=== PATIENT | female | born 1960 | race Caucasian/White ===

== ENCOUNTER 2017-06-12 03:05 | Emergency (ER) | payer OTHER ==
[2017-06-12] MEDS ORDERED: Morphine 4 mg/ml ISec IVP STA (03:19)
--- NOTE | 2017-06-12 03:30 | ED PDOC ---
Arrival/HPI - General Chief Complaint: Abdominal Pain Time Seen by Provider: 06/12/17 03:08 Historian: Patient - History of Present Illness Narrative History of Present Illness (Text): 06/12/17 03:22 A 56 year old female, whose past medical history includes polycystic kidney disease, hypertension, and no history of surgery, presents to the emergency department complaining of RUQ pain x 30 minutes. Patient describes pain as sharp, non-radiating. Patient denies of shortness of breath, cough, chest pain , fever, or any other complaints. Time/Duration: Prior to Arrival Symptom Onset: Sudden Symptom Course: Unchanged Quality: Other (sharp) Activities at Onset: Rest, Light Context: Home Past Medical History - Provider Review Nursing Documentation Reviewed: Yes - Infectious Disease Hx of Infectious Diseases: None - Cardiac Hx Cardiac Disorders: Yes Hx Hypertension: Yes - Pulmonary Hx Respiratory Disorders: No - Neurological Hx Neurological Disorder: No - HEENT Hx HEENT Disorder: No - Renal Hx Renal Disorder: Yes Other/Comment: Polycystic Kidney Disease - Endocrine/Metabolic Hx Endocrine Disorders: No - Hematological/Oncological Hx Blood Disorders: No - Integumentary Hx Dermatological Disorder: No Hx Basal Cell Carcinoma: No - Musculoskeletal/Rheumatological Hx Musculoskeletal Disorders: No - Gastrointestinal Hx Gastrointestinal Disorders: No - Genitourinary/Gynecological Hx Genitourinary Disorders: No - Psychiatric Hx Psychophysiologic Disorder: No Hx Substance Use: No - Anesthesia Hx Anesthesia: No Family/Social History - Physician Review Nursing Documentation Reviewed: Yes Family/Social History: No Known Family HX Smoking Status: Never Smoked Hx Alcohol Use: Yes Frequency of alcohol use: Socially Hx Substance Use: No Allergies/Home Meds Allergies/Adverse Reactions: Allergies No Known Allergies Allergy (Verified 06/12/17 03:18) None Home Medications: Home Meds Medication Instructions Recorded Confirmed Lisinopril [Zestril] 20 mg PO DAILY 06/12/17 06/12/17 Review of Systems - Physician Review All systems were reviewed & negative as marked: Yes - Review of Systems Constitutional: absent: Fevers, Night Sweats Respiratory: absent: SOB, Cough Cardiovascular: absent: Chest Pain Gastrointestinal: Abdominal Pain (RUQ) Physical Exam Vital Signs Reviewed: Yes Vital Signs Temp Pulse Resp BP Pulse Ox 06/12/17 06:31 98.2 F 62 16 148/91 H 97 06/12/17 04:22 73 16 159/117 H 93 L 06/12/17 03:05 98.1 F 74 22 187/119 H 96 Temperature: Afebrile Blood Pressure: Hypertensive Pulse: Regular Respiratory Rate: Normal Appearance: Positive for: Well-Appearing Pain Distress: None Mental Status: Positive for: Alert and Oriented X 3 - Systems Exam Head: Present: Atraumatic, Normocephalic Pupils: Present: PERRL Extroacular Muscles: Present: EOMI Conjunctiva: Present: Normal Mouth: Present: Moist Mucous Membranes Neck: Present: Normal Range of Motion Respiratory/Chest: Present: Clear to Auscultation, Good Air Exchange. No: Respiratory Distress, Accessory Muscle Use Cardiovascular: Present: Regular Rate and Rhythm, Normal S1, S2. No: Murmurs Abdomen: Present: Tenderness (RUQ tenderness) Back: Present: Normal Inspection Upper Extremity: Present: Normal Inspection. No: Cyanosis, Edema Lower Extremity: Present: Normal Inspection. No: Edema Neurological: Present: GCS=15, CN II-XII Intact, Speech Normal Skin: Present: Warm, Dry, Normal Color. No: Rashes Psychiatric: Present: Alert, Oriented x 3, Normal Insight, Normal Concentration Medical Decision Making ED Course and Treatment: 06/12/17 03:30 Impression: 56 year old female with RUQ sharp pain. Physical exam shows RUQ tenderness. Plan: -- EKG -- Chest X-ray -- Ultrasound Abdomen -- Abd/Pelvis CT -- Labs -- Morphine -- Zofran -- Reassess and disposition Progress Notes: 06/12/2017 03:35 EKG: Ordered, reviewed, and independently interpreted the EKG. Rate : 79 BPM Rhythm : NSR Interpretation : No ST-segment elevations or depressions, no T-wave inversions, normal intervals. Comparison : No previous EKG for comparison. 06/12/2017 04:00 Abd/Pelvis CT FINDINGS: LOWER THORAX: No infiltrate seen in the lung bases. ABDOMEN: LIVER: Multiple low density lesions in the liver, most likely representing cysts. The largest of these is a very large 22 x 20 x 16 cm cyst in the liver, which is mildly complex, demonstrating small peripheral calcifications. There is an indeterminate 4.3 cm low density lesion in the left lobe of the liver, image 33/series 2, which could represent a complex cyst. GALLBLADDER AND BILE DUCTS: Multiple tiny gallstones. No CT evidence of acute cholecystitis. PANCREAS: No CT evidence of acute pancreatitis. SPLEEN: No acute abnormality of the spleen identified. ADRENALS: No acute abnormality of the adrenal glands identified. KIDNEYS AND URETERS: Extensive low density lesions in the kidneys bilaterally, essentially replacing the renal parenchyma bilaterally, compatible with innumerable bilateral renal cysts. The kidneys are enlarged bilaterally. Findings are compatible with autosomal dominant polycystic kidney disease. There are small, indeterminate hyperdense lesions in the kidneys bilaterally, which could represent complex cysts. Bilateral nonobstructing renal stones. Surgical clip in the right kidney. No evidence of hydroureteronephrosis. STOMACH AND BOWEL: No acute abnormality of the stomach, small bowel or colon identified. No evidence of bowel obstruction. APPENDIX: Appendix is seen, and is within normal limits in appearance. PELVIS: BLADDER: No acute abnormality of the bladder identified. REPRODUCTIVE: No acute abnormality of the reproductive organs is seen. ABDOMEN and PELVIS: INTRAPERITONEAL SPACE: No evidence of free intraperitoneal air or fluid. BONES/JOINTS: No acute fractures or other acute bony abnormality noted. SOFT TISSUES: No acute abnormality of the visualized soft tissues is seen. VASCULATURE: No evidence of abdominal aortic aneurysm. No evidence of periaortic hemorrhage. LYMPH NODES: No evidence of diffuse lymphadenopathy. IMPRESSION: - No evidence of significant acute process on this unenhanced exam. - Renal findings compatible with autosomal dominant polycystic kidney disease. There are innumerable bilateral renal cysts. - Multiple hepatic cysts, including a very large 22 x 20 cm cyst, which is mildly complex. - Indeterminate lesions in the kidneys bilaterally and in the liver, which could represent complex cysts. Findings could be further evaluated with nonemergent abdominal MRI. - See above for remaining findings. 06/12/17 06:22 IMPRESSION: Mild dilatation of the common bile duct, cause not identified. Recommend correlation with LFTs for laboratory evidence of biliary obstruction. cbd mildly dilated- r/o choledolithiasis. ntoed cr. no previous. pt reports had "normal blood work" in [place] 2 months ago. pt unsure of pmd info from joc[facility]. states "it is in her email" which she cannot access. dr le requests medical service admission. dr serra accepts. med surg. 06/12/17 06:41 pt now states needs to go home to kids. dr serra updated. signs ama. advised of risks. pt understands. antibiotics given for urine. return precautions advised. - Lab Interpretations Lab Results: 06/12/17 03:19 06/12/17 03:19 Lab Results 06/12/17 03:45: Urine Color Yellow, Urine Appearance Slight-cloudy, Urine pH 6.0 , Ur Specific [place] 1.010, Urine Protein 100 H, Urine Glucose (UA) Negative, Urine Ketones Negative, Urine Blood Small H, Urine Nitrate Negative, Urine Bilirubin Negative, Urine Urobilinogen 0.2, Ur Leukocyte Esterase Moderate H, Urine RBC 1 - 3, Urine WBC 5 - 10, Ur Epithelial Cells 0 - 2, Urine Bacteria Few 06/12/17 03:19: Sodium 140, Potassium 4.5, Chloride 107, Carbon Dioxide 20 L, Anion Gap 18, BUN 46 H, Creatinine 2.8 H, Est GFR ( Amer) 21, Est GFR ( Non-Af Amer) 18, Random Glucose 93, Calcium 9.2, Total Bilirubin 0.6, AST 28, ALT 22, Alkaline Phosphatase 62, Lactate Dehydrogenase 711 H, Total Creatine Kinase 147, Troponin I 0.02, Total Protein 7.7, Albumin 4.2, Globulin 3.5, Albumin/Globulin Ratio 1.2, Amylase 101, Lipase 144 06/12/17 03:19: PT 10.9, INR 1.01, APTT 27.9 06/12/17 03:19: WBC 7.5, RBC 4.00, Hgb 11.2 L, Hct 34.5 L, MCV 86.3, MCH 28.0, MCHC 32.5, RDW 13.5, Plt Count 183, MPV 10.8, Gran % 62.6, Lymph % (Auto) 24.3, [place] % (Auto) 6.7 H, Eos % (Auto) 5.9 H, Baso % (Auto) 0.5, Gran # 4.69, Lymph # 1.8, [place] # 0.5, Eos # 0.4, Baso # 0.04 I have reviewed the lab results: Yes - RAD Interpretation Radiology Orders: 06/12/17 03:19 CHEST PORTABLE [RAD] Stat 06/12/17 03:20 ABDOMEN COMPLETE [US] Stat 06/12/17 04:00 ABD & PELVIS W/O PO OR IV CONT [CT] Stat - Medication Orders Current Medication Orders: Discontinued Medications Morphine Sulfate (Morphine) 4 mg IVP STAT STA Stop: 06/12/17 03:20 Last Admin: 06/12/17 03:51 Dose: 4 mg Ondansetron HCl (Zofran Inj) 4 mg IVP STAT STA Stop: 06/12/17 03:20 Last Admin: 06/12/17 03:51 Dose: 4 mg - Neishaibe Statement The provider has reviewed the documentation as recorded by the Lefty Bullard Provider Neishaibshona Attestation: All medical record entries made by the Lefty were at my direction and personally dictated by me. I have reviewed the chart and agree that the record accurately reflects my personal performance of the history, physical exam, medical decision making, and the department course for this patient. I have also personally directed, reviewed, and agree with the discharge instructions and disposition. Disposition/Present on Arrival - Present on Arrival Any Indicators Present on Arrival: No History of DVT/PE: No History of Uncontrolled Diabetes: No Urinary Catheter: No History of Decub. Ulcer: No History Surgical Site Infection Following: None - Disposition Have Diagnosis and Disposition been Completed?: Yes Diagnosis: Choledocholithiasis, Acute renal failure Disposition: AGAINST MEDICAL ADVICE Disposition Time: 06:24 Patient Problems: Current Active Problems Problem Status Onset Acute renal failure Acute Choledocholithiasis Acute Condition: UNKNOWN
[2017-06-12 03:50] LABS: BASO # 0.04 K/mm3 (0.0-2.0); BASO % 0.5 % (0.0-3.0); EOS # 0.4 (0.0-0.7); EOS % 5.9 % (1.5-5.0); GRAN # 4.69 (1.4-6.5); GRAN % 62.6 % (50.0-68.0); HEMOGLOBIN 11.2 g/dL (12.0-16.0); LYMPH # 1.8 (1.2-3.4); LYMPH % 24.3 % (22.0-35.0); MEAN CELL VOLUME 86.3 fl (80.0-105.0); MEAN CORPUSCULAR HGB CONC 32.5 g/dl (31.0-37.0); MEAN PLATELET VOLUME 10.8 fl (7.0-11.0); MONO # 0.5 (0.1-0.6); MONO % 6.7 % (1.0-6.0); PLATELET COUNT 183 10^3/uL (120.0-450.0); RED CELL DISTRIBUTION WIDTH 13.5 % (11.5-14.5); WHITE BLOOD COUNT 7.5 10^3/ul (4.5-11.0)
[2017-06-12 03:51] LABS: ALB/GLOB RATIO 1.2 (1.1-1.8); ALBUMIN 4.2 g/dL (3.0-4.8); CALCIUM 9.2 mg/dL (8.4-10.5)
[2017-06-12 03:53] LABS: INR 1.01 (0.93-1.08); PARTIAL THROMBOPLASTIN TIME 27.9 Seconds (23.7-30.8); PROTHROMBIN TIME 10.9 Seconds (9.9-11.8)
[2017-06-12 04:01] LABS: TROPONIN I 0.02 ng/mL
[2017-06-12 04:23] VITALS: RESP 16
[2017-06-12 04:26] LABS: URINE BILIRUBIN NEGATIVE (NEGATIVE); URINE BLOOD SMALL (NEGATIVE); URINE GLUCOSE (UA) NEGATIVE (NEGATIVE); URINE LEUKOCYTE ESTERASE MODERATE Leu/uL (NEGATIVE); URINE NITRATE NEGATIVE (NEGATIVE); URINE PROTEIN 100 mg/dL (<30 mg/dL); URINE UROBILINOGEN 0.2 E.U./dL (<1 E.U./dL)
[2017-06-12 04:28] LABS: URINE APPEARANCE SLIGHT-CLOUDY (CLEAR); URINE COLOR YELLOW (YELLOW)
[2017-06-12 04:32] LABS: URINE BACTERIA FEW (NEG); URINE EPITHELIAL CELLS 0 - 2 /hpf (0-5)
--- NOTE | 2017-06-12 05:50 | CT ---
EXAM: CT Abdomen and Pelvis Without Intravenous Contrast CLINICAL HISTORY: 56 years old, female; Pain; Abdominal pain; Additional info: Right sided abd pain TECHNIQUE: Axial computed tomography images of the abdomen and pelvis without intravenous contrast. All CT scans at this facility use one or more dose reduction techniques, viz.: automated exposure control; ma/kV adjustment per patient size (including targeted exams where dose is matched to indication; i.e. head); or iterative reconstruction technique. Coronal and sagittal reformatted images were created and reviewed. EXAM DATE/TIME: 06/12/2017 4:00 AM COMPARISON: No relevant prior studies available. FINDINGS: LOWER THORAX: No infiltrate seen in the lung bases. ABDOMEN: LIVER: Multiple low density lesions in the liver, most likely representing cysts. The largest of these is a very large 22 x 20 x 16 cm cyst in the liver, which is mildly complex, demonstrating small peripheral calcifications. There is an indeterminate 4.3 cm low density lesion in the left lobe of the liver, image 33/series 2, which could represent a complex cyst. GALLBLADDER AND BILE DUCTS: Multiple tiny gallstones. No CT evidence of acute cholecystitis. PANCREAS: No CT evidence of acute pancreatitis. SPLEEN: No acute abnormality of the spleen identified. ADRENALS: No acute abnormality of the adrenal glands identified. KIDNEYS AND URETERS: Extensive low density lesions in the kidneys bilaterally, essentially replacing the renal parenchyma bilaterally, compatible with innumerable bilateral renal cysts. The kidneys are enlarged bilaterally. Findings are compatible with autosomal dominant polycystic kidney disease. There are small, indeterminate hyperdense lesions in the kidneys bilaterally, which could represent complex cysts. Bilateral nonobstructing renal stones. Surgical clip in the right kidney. No evidence of hydroureteronephrosis. STOMACH AND BOWEL: No acute abnormality of the stomach, small bowel or colon identified. No evidence of bowel obstruction. APPENDIX: Appendix is seen, and is within normal limits in appearance. PELVIS: BLADDER: No acute abnormality of the bladder identified. REPRODUCTIVE: No acute abnormality of the reproductive organs is seen. ABDOMEN and PELVIS: INTRAPERITONEAL SPACE: No evidence of free intraperitoneal air or fluid. BONES/JOINTS: No acute fractures or other acute bony abnormality noted. SOFT TISSUES: No acute abnormality of the visualized soft tissues is seen. VASCULATURE: No evidence of abdominal aortic aneurysm. No evidence of periaortic hemorrhage. LYMPH NODES: No evidence of diffuse lymphadenopathy. IMPRESSION: - No evidence of significant acute process on this unenhanced exam. - Renal findings compatible with autosomal dominant polycystic kidney disease. There are innumerable bilateral renal cysts. - Multiple hepatic cysts, including a very large 22 x 20 cm cyst, which is mildly complex. - Indeterminate lesions in the kidneys bilaterally and in the liver, which could represent complex cysts. Findings could be further evaluated with nonemergent abdominal MRI. - See above for remaining findings.
--- NOTE | 2017-06-12 06:01 | US ---
EXAM: US Abdomen Complete CLINICAL HISTORY: 56 years old, female; Pain; Abdominal pain; Localized; Right upper quadrant (ruq); Additional info: Ruq pain TECHNIQUE: Real-time ultrasound of the abdomen (complete) with image documentation. EXAM DATE/TIME: 06/12/2017 3:20 AM COMPARISON: Recent abdominal CT. FINDINGS: Gallbladder: Within normal limits in appearance, without evidence of significant gallbladder wall thickening, or pericholecystic fluid. Reportedly negative sonographic Eden's sign. The gallstones seen on the recent abdominal CT are not visible sonographically. Common bile duct: Mildly dilated, measuring up to 8.8 mm in diameter (normal less than 6 mm).No common bile duct stones are visualized. Liver: Contains multiple cystic lesions, the largest of which is a 26 x 23 x 18 cm cystic lesion in the right lobe. Normal flow seen in the main portal vein on color and Doppler imaging. Pancreas: Imaged portions appear unremarkable. Right kidney: Enlarged, measuring 17.8 cm in length. Contains innumerable cystic lesions, compatible with autosomal dominant polycystic kidney disease. The largest of these is a 7 x 4.7 x 5.5 cm complex cystic lesion, which contains multiple thin internal septations. No definite hydronephrosis. Left kidney: Enlarged, measuring 18.6 cm in length. Contains innumerable cystic lesions, compatible with autosomal dominant polycystic kidney disease. The largest of these is a 5.6 x 5 x 4.2 cm mildly complex cystic lesion, which contains a few thin internal septations. No definite hydronephrosis. Spleen: Mildly enlarged, measuring 13 cm in length. Aorta: Imaged portions appear unremarkable. IVC: Not specifically imaged. IMPRESSION: Mild dilatation of the common bile duct, cause not identified. Recommend correlation with LFTs for laboratory evidence of biliary obstruction. Otherwise, no evidence of significant acute process. Multiple cystic lesions in the kidneys and liver, compatible with autosomal dominant polycystic kidney disease. Mildly complex cystic lesions in the kidneys bilaterally. Followup is recommended. Very large 26 cm hepatic cyst. See above for remaining findings.
[2017-06-12 06:32] VITALS: BP 148/91; PULSE 62; TEMP 98.2
[2017-06-12 06:50] VITALS: O2SAT 98
--- NOTE | 2017-06-12 10:26 | RAD ---
HISTORY: Abdominal pain COMPARISON: No prior. FINDINGS: LUNGS: No active pulmonary disease. PLEURA: No significant pleural effusion identified, no pneumothorax apparent. CARDIOVASCULAR: No radiographic findings to suggest acute or significant cardiovascular disease. OSSEOUS STRUCTURES: No significant abnormalities. VISUALIZED UPPER ABDOMEN: Normal. OTHER FINDINGS: None. IMPRESSION: No active disease. No preliminary report provided by emergency department personnel.
--- NOTE | 2017-06-12 18:52 | CARD ---
APPROVED REPORT EKG Measurement Heart [id number] PA 146P [id number] <Conclusion> Sinus rhythm with premature supraventricular complexes Left axis deviation Voltage criteria for left ventricular hypertrophy Abnormal ECG
== END 2017-06-12 06:50 | disposition left against medical advice (07) ==
LOC: ED 03:05 → UNDOADMIN 06:11 → ERH 06:11 → ED 06:50
DX: K80.50 Calculus of bile duct without cholangitis or cholecystitis without obstruction (principal); N17.9 Acute kidney failure, unspecified; Q61.3 Polycystic kidney, unspecified; I10 Essential (primary) hypertension
CPT/HCPCS: 71010; 74176; 76700; 80053; 81001; 82150; 82550; 83615; 83690; 84484; 85025; 85610; 85730; 87086; 93005; 96374; 96375; 99284; J2270; J2405

== ENCOUNTER 2017-06-16 19:05 | Inpatient (IN) | payer OTHER ==
[2017-06-16 19:09] VITALS: BMI 32.4
[2017-06-16] MEDS ORDERED: HYDROmorphone 2 mg/ml ISec IVP STA (19:33)
[2017-06-16] MEDS ORDERED: Sodium Chloride 0.9% 1,000 ML IV SCH (19:45)
--- NOTE | 2017-06-16 19:50 | ED PDOC ---
Arrival/HPI - General Chief Complaint: Abdominal Pain Time Seen by Provider: 06/16/17 19:15 Historian: Patient - History of Present Illness Narrative History of Present Illness (Text): 06/16/17 19:52 Haley Cornelius is a 56 year old female, with a history of polycystic kidney disease , and hypertension, presents to the emergency department complaining of 4 day duration of RUQ abdominal pain. Patient was evaluated at [facility] 4 days ago for these symptoms when she was offered admission to the hospital for further evaluation, but patient signed out against medical advice. Presents to emergency department today with similar unresolved symptoms. Denies any nausea, vomiting, or diarrhea. Denies fever, chills, headache, dizziness, chest pain, shortness of breath, urinary symptoms, or any other complaints at this time. Time/Duration: Other (4 days ) Symptom Onset: Gradual Symptom Course: Unchanged Severity Level: Mild Activities at Onset: Light Past Medical History - Provider Review Nursing Documentation Reviewed: Yes - Infectious Disease Hx of Infectious Diseases: None - Cardiac Hx Cardiac Disorders: Yes Hx Hypertension: Yes - Pulmonary Hx Respiratory Disorders: No - Neurological Hx Neurological Disorder: No - HEENT Hx HEENT Disorder: No - Renal Hx Renal Disorder: Yes Other/Comment: Polycystic Kidney Disease - Endocrine/Metabolic Hx Endocrine Disorders: No - Hematological/Oncological Hx Blood Disorders: No - Integumentary Hx Dermatological Disorder: No Hx Basal Cell Carcinoma: No - Musculoskeletal/Rheumatological Hx Musculoskeletal Disorders: No - Gastrointestinal Hx Gastrointestinal Disorders: No - Genitourinary/Gynecological Hx Genitourinary Disorders: No - Psychiatric Hx Psychophysiologic Disorder: No Hx Substance Use: No - Anesthesia Hx Anesthesia: No Family/Social History - Physician Review Nursing Documentation Reviewed: Yes Family/Social History: No Known Family HX Smoking Status: Never Smoked Hx Alcohol Use: Yes Hx Substance Use: No Allergies/Home Meds Allergies/Adverse Reactions: Allergies No Known Allergies Allergy (Verified 06/16/17 19:09) None Home Medications: Home Meds Medication Instructions Recorded Confirmed Lisinopril [Zestril] 20 mg PO DAILY 06/12/17 06/16/17 Review of Systems - Physician Review All systems were reviewed & negative as marked: Yes - Review of Systems Constitutional: Normal. absent: Fatigue, Fevers Respiratory: Normal. absent: SOB, Cough, Sputum Cardiovascular: Normal. absent: Chest Pain, Palpitations Gastrointestinal: Abdominal Pain (RUQ ). absent: Constipation, Diarrhea, Nausea , Vomiting Neurological: Normal. absent: Headache, Dizziness Psychiatric: Normal Physical Exam Vital Signs Reviewed: Yes Vital Signs Temp Pulse Resp BP Pulse Ox 06/17/17 00:19 98.2 F 76 16 154/98 H 99 06/16/17 21:03 82 18 134/97 H 95 06/16/17 19:11 97.8 F 83 18 177/129 H 96 Temperature: Afebrile Blood Pressure: Hypertensive Pulse: Regular Respiratory Rate: Normal Appearance: Positive for: Well-Appearing, Non-Toxic, Comfortable Pain Distress: None Mental Status: Positive for: Alert and Oriented X 3 - Systems Exam Head: Present: Atraumatic, Normocephalic Pupils: Present: PERRL Conjunctiva: Present: Normal Mouth: Present: Moist Mucous Membranes Respiratory/Chest: Present: Clear to Auscultation, Good Air Exchange. No: Respiratory Distress, Accessory Muscle Use Cardiovascular: Present: Regular Rate and Rhythm, Normal S1, S2. No: Murmurs Abdomen: Present: Tenderness (RUQ tenderness ), Normal Bowel Sounds. No: Distention, Peritoneal Signs Upper Extremity: Present: Normal Inspection. No: Cyanosis, Edema Lower Extremity: Present: Normal Inspection. No: Edema Neurological: Present: GCS=15, CN II-XII Intact, Speech Normal, Motor Func Grossly Intact, Normal Sensory Function Skin: Present: Warm, Dry, Normal Color. No: Rashes Psychiatric: Present: Alert, Oriented x 3, Normal Insight, Normal Concentration Medical Decision Making ED Course and Treatment: 06/16/17 20:03 Impression: A 56 year old female who presents to the emergency department complaining of RUQ abdominal pain Plan: -- EKG -- Labs, Cardiac enzymes -- Dilaudid -- IV Fluids -- Zofran -- Blood Culture -- Urinalysis -- US gall bladder -- Reassess and disposition Progress Notes: Reviewed EKG, NSR at [address] L[address]. Non-specific ST/T wave changes. 06/16/17 21:43 Reviewed sono, US Gallbladder shows: 1. Apparent gallbladder wall thickening, nonspecific. 2. Apparent biliary ductal dilatation. Consider MRCP. 3. Hepatic and renal cysts. Given size and number of cysts, suggest nonemergent MRI for complete evaluation. 4. Incidental/non-acute findings are described above. 06/16/17 22:[address] Galan, requests pt go to hospitalist service. 06/16/17 22:54 Case discussed with medical illustrator, who is aware and agrees with plan. 06/16/17 23:[address] Metzger, who is aware and agrees with plan. Accepts pt in to hospitalist service. Pt will be admitted to [facility] for abdominal pain. - Lab Interpretations Lab Results: 06/16/17 21:30 06/16/17 19:45 Lab Results 06/16/17 22:00: Urine Color Yellow, Urine Appearance Clear, Urine pH 6.0, Ur Specific [place] 1.015, Urine Protein 100 H, Urine Glucose (UA) Negative, Urine Ketones Negative, Urine Blood Trace-intact H, Urine Nitrate Negative, Urine Bilirubin Negative, Urine Urobilinogen 0.2, Ur Leukocyte Esterase Negative, Urine RBC Negative, Urine WBC 2 - 5, Ur Epithelial Cells 1 - 3, Urine Bacteria Few 06/16/17 21:30: WBC 9.1 D, RBC 3.94, Hgb 11.2 L, Hct 34.1 L, MCV 86.5, MCH 28.4 , MCHC 32.8, RDW 13.3, Plt Count 152, MPV 10.7, Gran % 81.0 H, Lymph % (Auto) 10.3 L, [place] % (Auto) 6.4 H, Eos % (Auto) 2.1, Baso % (Auto) 0.2, Gran # 7.39 H , Lymph # 0.9 L, [place] # 0.6, Eos # 0.2, Baso # 0.02 06/16/17 19:45: Sodium 139, Potassium 4.5, Chloride 104, Carbon Dioxide 22, Anion Gap 18, BUN 36 H, Creatinine 2.5 H, Est GFR ( Amer) 24, Est GFR ( Non-Af Amer) 20, Random Glucose 91, Calcium 9.7, Total Bilirubin 1.1, AST 31, ALT 22, Alkaline Phosphatase 76, Lactate Dehydrogenase 597, Total Creatine Kinase 98, Troponin I < 0.01 D, Total Protein 8.2, Albumin 4.4, Globulin 3.8, Albumin/Globulin Ratio 1.2, Amylase 92, Lipase 100 06/16/17 19:45: PT 11.1, INR 1.03, APTT 25.1 I have reviewed the lab results: Yes - RAD Interpretation Narrative RAD Interpretations (Text): US Gallbladder shows: Liver: Normal echogenicity. Few cysts, largest within RIGHT lobe measuring 14.1 x 13.1 x 12.5 cm. No intrahepatic bile duct dilatation. Gallbladder: No gallstones appreciated. Apparent 0.5 cm wall thickness. No pericholecystic fluid. No sonographic Eden's sign. Common bile duct: Up to 0.82 cm in diameter. No stones. Pancreas: Obscured by overlying bowel gas. Right kidney: Innumerable renal cysts, largest measuring up to 7.2 cm. No hydronephrosis. IMPRESSION: 1. Apparent gallbladder wall thickening, nonspecific. 2. Apparent biliary ductal dilatation. Consider MRCP. 3. Hepatic and renal cysts. Given size and number of cysts, suggest nonemergent MRI for complete evaluation. 4. Incidental/non-acute findings are described above. Radiology Orders: 06/16/17 19:33 GALL BLADDER [US] Stat Metrology Manager: Radiologist - EKG Interpretation Interpreted by ED Physician: Yes Type: 12 lead EKG - Medication Orders Current Medication Orders: Cefpodoxime Proxetil (Vantin) 100 mg PO BID [facility] PRN Reason: Protocol Sodium Chloride (Sodium Chloride 0.9%) 1,000 mls @ 100 mls/hr IV .Q10H [facility] Last Admin: 06/17/17 00:57 Dose: 100 mls/hr Lisinopril (Zestril) 20 mg PO DAILY [facility] Ondansetron HCl (Zofran Inj) 4 mg IVP Q6H PRN PRN Reason: Nausea/Vomiting Discontinued Medications Hydromorphone HCl (Dilaudid) 2 mg IVP STAT STA Stop: 06/16/17 19:34 Last Admin: 06/16/17 20:00 Dose: 2 mg Re-Assess: CARLOS Pain Assessment Document 06/16/17 21:00 SC (Rec: 06/17/17 00:22 SC [facility] [id number]) Pain Reassessment Is this a pain reassessment? Yes Sleep Is patient sleeping during reassessment? Yes Sodium Chloride (Sodium Chloride 0.9%) 1,000 mls @ 80 mls/hr IV .[id number] [facility] Last Admin: 06/16/17 20:00 Dose: 80 mls/hr Ondansetron HCl (Zofran Inj) 4 mg IVP STAT STA Stop: 06/16/17 19:34 Last Admin: 06/16/17 20:00 Dose: 4 mg Ondansetron HCl (Zofran Inj) 4 mg IVP STAT STA Stop: 06/17/17 00:05 Last Admin: 06/17/17 00:22 Dose: 4 mg - Neishaibe Statement The provider has reviewed the documentation as recorded by the Lefty Honeycutt Provider Attestation: All medical record entries made by the Lefty were at my direction and personally dictated by me. I have reviewed the chart and agree that the record accurately reflects my personal performance of the history, physical exam, medical decision making, and the department course for this patient. I have also personally directed, reviewed, and agree with the discharge instructions and disposition. Disposition/Present on Arrival - Present on Arrival Any Indicators Present on Arrival: No History of DVT/PE: No History of Uncontrolled Diabetes: No Urinary Catheter: No History of Decub. Ulcer: No History Surgical Site Infection Following: None - Disposition Have Diagnosis and Disposition been Completed?: Yes Diagnosis: Abdominal pain Disposition: HOSPITALIZED Disposition Time: 23:30 Condition: FAIR
[2017-06-16 20:42] LABS: ALB/GLOB RATIO 1.2 (1.1-1.8); ALBUMIN 4.4 g/dL (3.0-4.8); ALT/SGPT 22 U/L (7-56); AMYLASE 92 U/L (35-125); AST/SGOT 31 U/L (15-39); BLOOD UREA NITROGEN 36 mg/dL (7-21); CALCIUM 9.7 mg/dL (8.4-10.5); GFR AFRICAN-AMERICAN 24; GFR NON-AFRICAN AMERICAN 20; LIPASE 100 U/L (23-300)
[2017-06-16 20:44] LABS: INR 1.03 (0.93-1.08); PARTIAL THROMBOPLASTIN TIME 25.1 Seconds (23.7-30.8); PROTHROMBIN TIME 11.1 Seconds (9.9-11.8)
[2017-06-16 20:59] LABS: TROPONIN I < 0.01 ng/mL
--- NOTE | 2017-06-16 21:33 | US ---
EXAM: US Abdomen Limited, Right Upper Quadrant CLINICAL HISTORY: 56 years old, female; Pain; Abdominal pain; Flank; Right upper quadrant (ruq); Additional info: Ruq pain TECHNIQUE: Real-time ultrasound of the right upper quadrant with image documentation. COMPARISON: CT - ABD PELVIS W/O PO OR IV CONT 06/12/2017 4:06:39 AM FINDINGS: Liver: Normal echogenicity. Few cysts, largest within RIGHT lobe measuring 14.1 x 13.1 x 12.5 cm. No intrahepatic bile duct dilatation. Gallbladder: No gallstones appreciated. Apparent 0.5 cm wall thickness. No pericholecystic fluid. No sonographic Eden's sign. Common bile duct: Up to 0.82 cm in diameter. No stones. Pancreas: Obscured by overlying bowel gas. Right kidney: Innumerable renal cysts, largest measuring up to 7.2 cm. No hydronephrosis. IMPRESSION: 1. Apparent gallbladder wall thickening, nonspecific. 2. Apparent biliary ductal dilatation. Consider MRCP. 3. Hepatic and renal cysts. Given size and number of cysts, suggest nonemergent MRI for complete evaluation. 4. Incidental/non-acute findings are described above.
[2017-06-16 21:44] LABS: BASO # 0.02 K/mm3 (0.0-2.0); BASO % 0.2 % (0.0-3.0); EOS # 0.2 (0.0-0.7); EOS % 2.1 % (1.5-5.0); GRAN # 7.39 (1.4-6.5); HEMOGLOBIN 11.2 g/dL (12.0-16.0); LYMPH # 0.9 (1.2-3.4); LYMPH % 10.3 % (22.0-35.0); MEAN CELL VOLUME 86.5 fl (80.0-105.0); MEAN CORPUSCULAR HEMOGLOBIN 28.4 pg (25.0-35.0); MEAN CORPUSCULAR HGB CONC 32.8 g/dl (31.0-37.0); MEAN PLATELET VOLUME 10.7 fl (7.0-11.0); MONO # 0.6 (0.1-0.6); MONO % 6.4 % (1.0-6.0); PLATELET COUNT 152 10^3/uL (120.0-450.0); RBC 3.94 10^6/uL (3.5-6.1); RED CELL DISTRIBUTION WIDTH 13.3 % (11.5-14.5); WHITE BLOOD COUNT 9.1 10^3/ul (4.5-11.0)
[2017-06-16 22:32] LABS: URINE BILIRUBIN NEGATIVE (NEGATIVE); URINE BLOOD TRACE-INTACT (NEGATIVE); URINE GLUCOSE (UA) NEGATIVE (NEGATIVE); URINE LEUKOCYTE ESTERASE NEGATIVE Leu/uL (NEGATIVE); URINE NITRATE NEGATIVE (NEGATIVE); URINE PROTEIN 100 mg/dL (<30 mg/dL); URINE UROBILINOGEN 0.2 E.U./dL (<1 E.U./dL)
[2017-06-16 22:36] LABS: URINE APPEARANCE CLEAR (CLEAR); URINE COLOR YELLOW (YELLOW)
[2017-06-16 22:53] LABS: URINE BACTERIA FEW (NEG); URINE RBC NEGATIVE /hpf (0-2)
--- NOTE | 2017-06-17 00:04 | CP.PCM.HP ---
Addendum entered and electronically signed by Sanya Krishna DO 06/17/17 06:39 : Hepatic cyst may not be the etiology to the patient's RUQ pain. More commonly, patients with ADPKD develop recurrent flank or back pain due to kidney stones, cyst rupture or hemorrhage, or infection. Furthermore, after further questioning , the patient was unsure if in fact it was a renal cyst or liver cyst. Original Note: <Sanya Krishna - Last Filed: 06/17/17 02:37> History of Present Illness - History of Present Illness History of Present Illness: 56 year old female with a past medical history significant for polycystic kidney disease diagnosed at age 29 and hypertension who presents with RUQ pain of 4 days duration and 1 day of diarrhea and some nausea. The pain, she states, is what brings her in to the ED. It is located in the RUQ, constant, encompasses the area of the liver, worsened with deep inspiration, positional changes, and is unrelieved by Tylenol. She states she was in the ED four days ago for RUQ pain and was sent home with an antiemetic and Vantin for a UTI. The diarrhea she states, is unrelated to the RUQ pain, and is most likely because of the antibiotics she is taking. She also mentions that she had a physician in [place] that once scanned her abdomen and pelvis and drained a cyst because it was getting to large, not because it was causing pain. She denies worsening of the abdominal pain with meals or fasting. She further denies any fever, chills, night sweats, jaundiced, chest pain, change in urinary color. The diarrhea she states happened twice today, and has resolved since she stopped eating today. Primary Medical Doctor: Dr. Ifeanyi Shah [phone] PMH: Hypertension, PKD Family History: Mother had PKD, sister has PKD, father of lung cancer (he was a smoker) Past Surgical History: None Social: admits to occasional alcohol consumption, denies drinking more than 4 alcoholic beverages in one day, denies any tobacco use, denies any illicit drug use. Medications: Vantin 100 mg BID, Lisinopril 20 mg daily NKDA Present on Admission - Present on Admission Any Indicators Present on Admission: No Review of Systems - Constitutional Constitutional: absent: Anorexia, Chills, Headache, Night Sweats - EENT Eyes: absent: Change in Vision, Discharge, Itchy Eyes Ears: absent: Decreased Hearing, Ear Discharge, Disequilibrium - Respiratory Respiratory: Pain on Inspiration. absent: Dyspnea on Exertion, Chest Congestion - Gastrointestinal Gastrointestinal: Diarrhea, Vomiting. absent: Constipation - Genitourinary Genitourinary: Flank Pain (right). absent: Change in Urinary Stream - Musculoskeletal Musculoskeletal: absent: Muscle Weakness, Myalgias, Radiating Pain into Limb - Integumentary Integumentary: absent: Bleeding Lesions, Change in Nails, Erythema - Neurological Neurological: absent: Abnormal Hearing, Burning Sensations, Loss of Vision, Weakness - Psychiatric Psychiatric: absent: Change in Appetite, Depression, Mood Swings - Endocrine Endocrine: absent: Deepening of Voice, Excessive Sweating, Heat Intolorance - Hematologic/Lymphatic Hematologic: absent: Easy Bleeding, Easy Bruising, Lymphadenopathy Past Patient History - Infectious Disease Hx of Infectious Diseases: None - Past Social History Smoking Status: Never Smoked - CARDIAC Hx Cardiac Disorders: Yes Hx Hypertension: Yes - PULMONARY Hx Respiratory Disorders: No - NEUROLOGICAL Hx Neurological Disorder: No - HEENT Hx HEENT Problems: No - RENAL Hx Chronic Kidney Disease: Yes Other/Comment: Polycystic Kidney Disease - ENDOCRINE/METABOLIC Hx Endocrine Disorders: No - HEMATOLOGICAL/ONCOLOGICAL Hx Blood Disorders: No - INTEGUMENTARY Hx Dermatological Problems: No Hx Basil Cell: No - MUSCULOSKELETAL/RHEUMATOLOGICAL Hx Musculoskeletal Disorders: No - GASTROINTESTINAL Hx Gastrointestinal Disorders: No - GENITOURINARY/GYNECOLOGICAL Hx Genitourinary Disorders: No - PSYCHIATRIC Hx Psychophysiologic Disorder: No Hx Substance Use: No - SURGICAL HISTORY Hx Surgeries: No - ANESTHESIA Hx Anesthesia: No Meds Allergies/Adverse Reactions: Allergies Allergy/AdvReac Type Severity Reaction Status Date / Time No Known Allergies Allergy None Verified 06/16/17 19:09 Physical Exam - Constitutional Appears: Non-toxic, No Acute Distress - Head Exam Head Exam: ATRAUMATIC, NORMOCEPHALIC - Eye Exam Eye Exam: EOMI, Normal appearance, PERRL - ENT Exam ENT Exam: Mucous Membranes Moist, Normal Oropharynx - Neck Exam Neck exam: Positive for: Normal Inspection. Negative for: Lymphadenopathy, Thyromegaly - Respiratory Exam Respiratory Exam: Clear to Auscultation Bilateral, NORMAL BREATHING PATTERN. absent: Wheezes - Cardiovascular Exam Cardiovascular Exam: RRR, +S1, +S2 - GI/Abdominal Exam GI & Abdominal Exam: Organomegaly (hepatosplenomegaly, negative roland's, tenderness to deep palpation of liver.) - Rectal Exam Rectal Exam: absent: Deferred - Back Exam Back exam: NORMAL INSPECTION. absent: CVA tenderness (L), CVA tenderness (R) - Neurological Exam Neurological exam: Alert, CN II-XII Intact, Normal Gait, Oriented x3 - Psychiatric Exam Psychiatric exam: Normal Affect, Normal Mood - Skin Skin Exam: Dry, Intact, Normal Color, Warm Results - Vital Signs Recent Vital Signs: Last Vital Signs Temp 97.8 F 06/16/17 19:11 Pulse 82 06/16/17 21:03 Resp 18 06/16/17 21:03 BP 134/97 H 06/16/17 21:03 Pulse Ox 95 06/16/17 21:03 - Labs Result Diagrams: 06/16/17 21:30 06/16/17 19:45 Assessment & Plan - Assessment and Plan (Free Text) Assessment: 56 yo female with polycystic kidney disease (with cyst in the liver, kidneys, and spleen) presenting with RUQ pain with a large cyst in the right hepatic lobe without signs of gallbladder disease or shock, with a history of hepatic cyst drainage 2.5 years ago in the past. Plan: 1)RUQ pain likely secondary to large hepatic cyst in a patient with ADPKD who has had drainage of a hepatic cyst 2.5 years ago. Patient was informed by her doctor at the time that it would likely recur. She reports no monitoring for the past 2.5 years for her cyst/ADPKD - RUQ US shows that the liver has normal echogenicity, with a few cysts therein, with the largest within RIGHT lobe measuring 14.1 x 13.1 x 12.5 cm no intrahepatic bile duct dilatation. - IR radiologist Dr. Cory Marinelli consulted - Keep patient NPO - 100 cc/hr NS - Zofran for nausea 4 mg q6h PRN - Re-assess patient if and when pain recurs, start analgesia if needed 2) Unlikely gallstone/gall bladder disease given patient's labs or clinical presentation do not point to this. - RUQ US showed no evidence of gallstone, gall bladder wall thickening, or pericholecystic fluid, or CBD abnormalities. - No need for MRCP 3) Hypertension - C/W 20 mg Lisinopril in morning 4) Renal insufficiency secondary to PKD - Patient's Cr was 2.5 on current admission, last admission was 2.8. Patient is making urine, has no urinary complaints, was treated for a UTI. - Will continue to monitor and avoid nephrotoxins - Date & Time Date: 06/17/17 Time: 00:50 Decision To Admit - Pt Status Changed To: Hospital Disposition Of: Inpatient Admission - Admit Certification Admit to Inpatient:: After my assessment, the patient will require hospitalization for at least two midnights. This is because of the severity of symptoms shown, intensity of services needed, and/or the medical risk in this patient being treated as an outpatient. - . Bed Request Type: Med/Surg Admitting Physician: Marcel Metzger <Marcel Metzger - Last Filed: 06/17/17 07:04> Results - Vital Signs Recent Vital Signs: Last Vital Signs Temp 97.9 F 06/17/17 00:49 Pulse 64 06/17/17 00:49 Resp 20 06/17/17 00:49 BP 141/101 H 06/17/17 00:49 Pulse Ox 99 06/17/17 00:19 - Labs Result Diagrams: 06/16/17 21:30 06/16/17 19:45 Attending/Attestation - Attestation I have personally seen and examined this patient.: Yes I have fully participated in the care of the patient.: Yes I have reviewed all pertinent clinical information: Yes Notes (Text): 06/17/17 07:04 Agreed with assessment and plan.
[2017-06-17] MEDS: Sodium Chloride 0.9% 1,000 ML IV SCH ×2 (00:57→10:03)
--- NOTE | 2017-06-17 02:35 | ED PDOC ---
Arrival/HPI - General Chief Complaint: Abdominal Pain Time Seen by Provider: 06/16/17 19:15 Past Medical History - Infectious Disease Hx of Infectious Diseases: None - Cardiac Hx Cardiac Disorders: Yes Hx Hypertension: Yes - Pulmonary Hx Respiratory Disorders: No - Neurological Hx Neurological Disorder: No - HEENT Hx HEENT Disorder: No - Renal Hx Renal Disorder: Yes Other/Comment: Polycystic Kidney Disease - Endocrine/Metabolic Hx Endocrine Disorders: No - Hematological/Oncological Hx Blood Disorders: No - Integumentary Hx Dermatological Disorder: No Hx Basal Cell Carcinoma: No - Musculoskeletal/Rheumatological Hx Musculoskeletal Disorders: No - Gastrointestinal Hx Gastrointestinal Disorders: No - Genitourinary/Gynecological Hx Genitourinary Disorders: No - Psychiatric Hx Psychophysiologic Disorder: No Hx Substance Use: No - Anesthesia Hx Anesthesia: No Family/Social History Family/Social History: No Known Family HX Smoking Status: Never Smoked Hx Alcohol Use: No Hx Substance Use: No Allergies/Home Meds Allergies/Adverse Reactions: Allergies No Known Allergies Allergy (Verified 06/16/17 19:09) None Home Medications: Home Meds Medication Instructions Recorded Confirmed Lisinopril [Zestril] 20 mg PO DAILY 06/12/17 06/16/17 Physical Exam Vital Signs Temp Pulse Resp BP Pulse Ox 06/17/17 00:49 97.9 F 64 20 141/101 H 06/17/17 00:19 98.2 F 76 16 154/98 H 99 06/16/17 21:03 82 18 134/97 H 95 06/16/17 19:11 97.8 F 83 18 177/129 H 96 Medical Decision Making - Lab Interpretations Lab Results: 06/16/17 21:30 06/16/17 19:45 Lab Results 06/16/17 22:00: Urine Color Yellow, Urine Appearance Clear, Urine pH 6.0, Ur Specific [place] 1.015, Urine Protein 100 H, Urine Glucose (UA) Negative, Urine Ketones Negative, Urine Blood Trace-intact H, Urine Nitrate Negative, Urine Bilirubin Negative, Urine Urobilinogen 0.2, Ur Leukocyte Esterase Negative, Urine RBC Negative, Urine WBC 2 - 5, Ur Epithelial Cells 1 - 3, Urine Bacteria Few 06/16/17 21:30: WBC 9.1 D, RBC 3.94, Hgb 11.2 L, Hct 34.1 L, MCV 86.5, MCH 28.4 , MCHC 32.8, RDW 13.3, Plt Count 152, MPV 10.7, Gran % 81.0 H, Lymph % (Auto) 10.3 L, [place] % (Auto) 6.4 H, Eos % (Auto) 2.1, Baso % (Auto) 0.2, Gran # 7.39 H , Lymph # 0.9 L, [place] # 0.6, Eos # 0.2, Baso # 0.02 06/16/17 19:45: Sodium 139, Potassium 4.5, Chloride 104, Carbon Dioxide 22, Anion Gap 18, BUN 36 H, Creatinine 2.5 H, Est GFR ( Amer) 24, Est GFR ( Non-Af Amer) 20, Random Glucose 91, Calcium 9.7, Total Bilirubin 1.1, AST 31, ALT 22, Alkaline Phosphatase 76, Lactate Dehydrogenase 597, Total Creatine Kinase 98, Troponin I < 0.01 D, Total Protein 8.2, Albumin 4.4, Globulin 3.8, Albumin/Globulin Ratio 1.2, Amylase 92, Lipase 100 06/16/17 19:45: PT 11.1, INR 1.03, APTT 25.1 - RAD Interpretation Radiology Orders: 06/16/17 19:33 GALL BLADDER [US] Stat - Medication Orders Current Medication Orders: Sodium Chloride (Sodium Chloride 0.9%) 1,000 mls @ 80 mls/hr IV .[id number] [facility] Last Admin: 06/16/17 20:00 Dose: 80 mls/hr Sodium Chloride (Sodium Chloride 0.9%) 1,000 mls @ 100 mls/hr IV .Q10H [facility] Last Admin: 06/17/17 00:57 Dose: 100 mls/hr Ondansetron HCl (Zofran Inj) 4 mg IVP Q6H PRN PRN Reason: Nausea/Vomiting Discontinued Medications Hydromorphone HCl (Dilaudid) 2 mg IVP STAT STA Stop: 06/16/17 19:34 Last Admin: 06/16/17 20:00 Dose: 2 mg Re-Assess: CARLOS Pain Assessment Document 06/16/17 21:00 SC (Rec: 06/17/17 00:22 SC [id number]) Pain Reassessment Is this a pain reassessment? Yes Sleep Is patient sleeping during reassessment? Yes Ondansetron HCl (Zofran Inj) 4 mg IVP STAT STA Stop: 06/16/17 19:34 Last Admin: 06/16/17 20:00 Dose: 4 mg Ondansetron HCl (Zofran Inj) 4 mg IVP STAT STA Stop: 06/17/17 00:05 Last Admin: 06/17/17 00:22 Dose: 4 mg Disposition/Present on Arrival - Present on Arrival Any Indicators Present on Arrival: No History of DVT/PE: No History of Uncontrolled Diabetes: No Urinary Catheter: No History of Decub. Ulcer: No History Surgical Site Infection Following: None - Disposition Referrals: [facility], [Primary Care Provider] - Follow up with primary Forms: [employer] (Kyrgyz)
--- NOTE | 2017-06-17 09:18 | CP.PCM.CON ---
<Liza James - Last Filed: 06/17/17 12:28> History of Present Illness - History of Present Illness History of Present Illness: PGY-2 Nephrology conult note for Dr. Hdz 56 yo female with a PMH of polycystic kidney disease and hypertension who presents with RUQ pain of 4 days duration. Patient states that the pain is located in the RUQ, radiates to the right shoulder and down to RLQ. Pain worsens with deep inspiration and positional changes. Patient states that she went to ED 4 days ago and was given morphine and abx, the pain improved and became intermittent. However 1 day ago the pain became progressively worse and constant. Patient also reports multiple episodes of diarrhea for past 1 day, she believes it is unrelated to the RUQ pain, and is most likely because of the antibiotics she is taking. Patient states that she recently moved from [place]. A few years ago patient had an incidental finding of a large hepatic cyst that was drained. She denies worsening of the abdominal pain with meals or fasting. She further denies any fever, chills, night sweats, jaundiced , chest pain, dysuria, hematuria. Patient states that shes only seen rail operator once and she was advised to see transplant specialist. She was told to return when kidney function worsened. PMH: Hypertension, PCKD PSH: drainage of hepatic cyst Family HX: Mother and sister PKD, father of lung cancer with h/o smoking Social hx: occasional alcohol use, denies any tobacco use, denies any illicit drug use. Home meds: Vantin 100 mg BID, Lisinopril 20 mg daily allergy: NKDA Review of Systems - Constitutional Constitutional: Chills. absent: Fever, Night Sweats - EENT Eyes: absent: Change in Vision Nose/Mouth/Throat: absent: Nasal Congestion, Dysphagia - Cardiovascular Cardiovascular: absent: Chest Pain, Diaphoresis, Dyspnea, Palpitations - Respiratory Respiratory: Cough (occasional ), Pain on Inspiration. absent: Dyspnea, Hemoptysis, Wheezing - Gastrointestinal Gastrointestinal: Abdominal Pain (ruq), Diarrhea, Nausea, Vomiting. absent: Constipation, Hematemesis, Hematochezia, Melena - Genitourinary Genitourinary: absent: Change in Urinary Stream, Difficulty Urinating, Dysuria, Flank Pain, Hematuria - Musculoskeletal Musculoskeletal: absent: Back Pain, Muscle Weakness, Numbness, Stiffness - Integumentary Integumentary: absent: Pruritus, Rash, Sores, Jaundice - Neurological Neurological: absent: Dizziness, Numbness, Focal Weakness, Syncope, Weakness - Endocrine Endocrine: absent: Polydipsia, Polyphagia, Polyuria - Hematologic/Lymphatic Hematologic: absent: Easy Bleeding, Easy Bruising Past Patient History - Infectious Disease Hx of Infectious Diseases: None - Past Social History Smoking Status: Never Smoked - CARDIAC Hx Cardiac Disorders: Yes Hx Hypertension: Yes - PULMONARY Hx Respiratory Disorders: No - NEUROLOGICAL Hx Neurological Disorder: No - HEENT Hx HEENT Problems: No - RENAL Hx Chronic Kidney Disease: Yes Other/Comment: Polycystic Kidney Disease - ENDOCRINE/METABOLIC Hx Endocrine Disorders: No - HEMATOLOGICAL/ONCOLOGICAL Hx Blood Disorders: No - INTEGUMENTARY Hx Dermatological Problems: No Hx Basil Cell: No - MUSCULOSKELETAL/RHEUMATOLOGICAL Hx Musculoskeletal Disorders: No - GASTROINTESTINAL Hx Gastrointestinal Disorders: No - GENITOURINARY/GYNECOLOGICAL Hx Genitourinary Disorders: No - PSYCHIATRIC Hx Psychophysiologic Disorder: No Hx Substance Use: No - SURGICAL HISTORY Hx Surgeries: No - ANESTHESIA Hx Anesthesia: No Meds Allergies/Adverse Reactions: Allergies Allergy/AdvReac Type Severity Reaction Status Date / Time No Known Allergies Allergy None Verified 06/16/17 19:09 - Medications Medications: Current Medications Cefpodoxime Proxetil (Vantin) 100 mg PO BID [facility] PRN Reason: Protocol Sodium Chloride (Sodium Chloride 0.9%) 1,000 mls @ 100 mls/hr IV .Q10H [facility] Last Admin: 06/17/17 00:57 Dose: 100 mls/hr Lisinopril (Zestril) 20 mg PO DAILY [facility] Ondansetron HCl (Zofran Inj) 4 mg IVP Q6H PRN PRN Reason: Nausea/Vomiting Physical Exam - Constitutional Additional comments: mild distress with movement - Head Exam Head Exam: ATRAUMATIC, NORMOCEPHALIC - Eye Exam Eye Exam: EOMI, Normal appearance - ENT Exam ENT Exam: Mucous Membranes Moist - Respiratory Exam Respiratory Exam: Clear to Auscultation Bilateral, NORMAL BREATHING PATTERN. absent: Decreased Breath Sounds, Rales, Rhonchi, Wheezes, Respiratory Distress - Cardiovascular Exam Cardiovascular Exam: REGULAR RHYTHM, +S1, +S2. absent: Tachycardia, Diastolic murmur, Systolic Murmur - GI/Abdominal Exam GI & Abdominal Exam: Normal Bowel Sounds, Soft, Tenderness. absent: Distended, Firm - Extremities Exam Extremities exam: Positive for: normal inspection. Negative for: pedal edema, tenderness - Back Exam Back exam: absent: CVA tenderness (L), CVA tenderness (R) - Neurological Exam Neurological exam: Alert, Oriented x3 - Skin Skin Exam: Dry, Intact, Normal Color, Warm Results - Vital Signs Recent Vital Signs: Last Vital Signs Temp 97.9 F 06/17/17 00:49 Pulse 64 06/17/17 00:49 Resp 20 06/17/17 00:49 BP 141/101 H 06/17/17 00:49 Pulse Ox 99 06/17/17 00:19 - Labs Result Diagrams: 06/16/17 21:30 06/16/17 19:45 Assessment & Plan - Assessment and Plan (Free Text) Assessment: 56 yo female with a PMH of polycystic kidney disease and hypertension who presents with RUQ pain of 4 days duration. Imaging showed multiple renal and large hepatic cyst, 22 x 20 cm. Plan: 1. PKD - Gallbladder US showed gallbladder wall thickening, Apparent biliary ductal dilatation. Hepatic and renal cysts. - abd US on 06/14/17 showed mild dilatation of the common bile duct. Multiple cystic lesions in the kidneys and liver, compatible with autosomal dominant polycystic kidney disease, Mildly complex cystic lesions in the kidneys bilaterally, Very large 26 cm hepatic cyst. - abd CT on 06/12/17 showed no evidence of significant acute process, innumerable bilateral renal cysts, Multiple hepatic cysts, including a very large 22 x 20 cm cyst, which is mildly complex. - RUQ pain likely secondary to large hepatic cyst - possible infection of cyst, will start cipro - IR Dr. Cory Marinelli consulted for drainage of hepatic cyst - cont IVF 100 cc/hr NS - cont Zofran for nausea PRN - cont pain control 2. CKD - per patient GFR at baseline - will order urine protein and creatinine - denies any urinary symptoms - recently treated for UTI - Will continue to monitor - patient is advised to drink plenty of water - she is to follow up outpatient 3. Hypertension - per patient BP is not controlled at home - increase Lisinopril to 40 mg daily - cont to monitor <Harry Hdz - Last Filed: 06/17/17 19:14> Meds - Medications Medications: Current Medications Ciprofloxacin (Cipro) 500 mg PO DAILY [facility] PRN Reason: Protocol Stop: 06/18/17 13:12 Last Admin: 06/17/17 14:46 Dose: 500 mg Sodium Chloride (Sodium Chloride 0.9%) 1,000 mls @ 100 mls/hr IV .Q10H [facility] Last Admin: 06/17/17 10:03 Dose: 100 mls/hr Lisinopril (Zestril) 40 mg PO DAILY [facility] Ondansetron HCl (Zofran Inj) 4 mg IVP Q6H PRN PRN Reason: Nausea/Vomiting Results - Vital Signs Recent Vital Signs: Last Vital Signs Temp 98.4 F 06/17/17 18:30 Pulse 64 06/17/17 18:30 Resp 16 06/17/17 18:30 BP 150/95 H 06/17/17 18:30 Pulse Ox 99 06/17/17 18:30 - Labs Result Diagrams: 06/16/17 21:30 06/16/17 19:45 Labs: Laboratory Results - last 24 hr 06/17/17 06/17/17 06/17/17 14:57 16:01 17:56 Ur Random Creatinine 67 U Random Total Protein 108 Fluid Source Peritoneal Attending/Attestation - Attestation I have personally seen and examined this patient.: Yes I have fully participated in the care of the patient.: Yes I have reviewed all pertinent clinical information: Yes Notes (Text): Patient seen and examined; I agree with the resident's note above with the following edits/additons: 56 yo F w/ pmh of ADPKD (mother only known affected family member, at age of 72 and was not on dialysis), htn, presents with severe RUQ pain that started just 5 days ago, denies having such pain previously; History of previous liver cyst drainage but never with this kind of pain; On exam, patient has RUQ tenderness and fullness; otherwise no signs of volume excess; Labs reveal serum creat 2.5, correlating to eGFR of 20 ml/min; was told her renal function previously around "25"; Infected cyst is a likely possibility despite being afebrile and without leukocytosis; -Agree with cyst aspiration and sending for culture -Agree with changing antibiotics to cipro (for better cyst penetration) Hypertensive CKD; BP uncontrolled; goal in ADPKD should be SBP < 120; on lisinopril 20 mg (AVE inhibitor/ARB is drug of choice in this condition), increase to 40 mg daily; additonal BP meds as outpatient; CKD IV; patient is at the point of referral for renal transplant (eGFR < 20); will refer as outpatient; will check for proteinuria (has worse prognosis for progression of ADPKD); advised to drink copious amounts of water; avoid diuretics and "dehydration"; Anemia - Mild; will check iron studies; CKD Mineral Bone Disease - Will check PTH, phos and 25-OH vit D levels; 06/17/17 19:13
[2017-06-17] MEDS ORDERED: Cefpodoxime (Vantin) 100 mg Tab PO SCH (10:00)
--- NOTE | 2017-06-17 11:53 | CARD ---
APPROVED REPORT EKG Measurement Heart [id number] <Conclusion> Normal sinus rhythm Left axis deviation Voltage criteria for left ventricular hypertrophy Nonspecific ST abnormality Abnormal ECG
[2017-06-17] MEDS ORDERED: Midazolam 2 MG/2 ML VIAL ONE (17:09)
[2017-06-17 17:57] LABS: BODY FLUID TYPE PERITONEAL
--- NOTE | 2017-06-17 18:26 | CT ---
PROCEDURE: CT-guided hepatic cyst drainage HISTORY: Polycystic kidneys. Massive hepatic cyst with right upper quadrant pain. PHYSICIAN(S): Cory Marinelli MD. TECHNIQUE: The relative risks and indications for the procedure were explained to the patient and informed consent obtained. The patient was placed in a supine position on the CT scanner and preliminary images through the upper abdomen performed. This revealed a massive 15 x 21 cm simple appearing cyst compressing a majority of the right lobe of the liver. A right anterior approach was selected and the area prepped/draped in the usual sterile fashion. Conscious sedation and monitoring were provided throughout the procedure by nurse. A 7 Nepali paracentesis catheter was advanced into the hepatic cyst and 2500 cc of clear straw-colored fluid aspirated. The appropriate labs were sent. There is a residual 13 cm cyst on the post drainage images. This suggests that the hepatic cyst is possibly septated. IMPRESSION: 1. CT-guided hepatic cyst drainage as described above.
[2017-06-17 20:42] LABS: BF GROSS APPEARANCE CLEAR (CLEAR); BODY FLUID WBC 15.4 /uL (0.0-300.0)
[2017-06-18 07:42] LABS: BASO # 0.02 K/mm3 (0.0-2.0); BASO % 0.5 % (0.0-3.0); EOS # 0.3 (0.0-0.7); EOS % 6.7 % (1.5-5.0); GRAN # 2.41 (1.4-6.5); GRAN % 55.2 % (50.0-68.0); HEMOGLOBIN 10.2 g/dL (12.0-16.0); LYMPH # 1.3 (1.2-3.4); LYMPH % 29.1 % (22.0-35.0); MEAN CELL VOLUME 87.5 fl (80.0-105.0); MEAN CORPUSCULAR HEMOGLOBIN 27.6 pg (25.0-35.0); MEAN CORPUSCULAR HGB CONC 31.6 g/dl (31.0-37.0); MEAN PLATELET VOLUME 11.2 fl (7.0-11.0); MONO # 0.4 (0.1-0.6); MONO % 8.5 % (1.0-6.0); PLATELET COUNT 152 10^3/uL (120.0-450.0); RBC 3.69 10^6/uL (3.5-6.1); RED CELL DISTRIBUTION WIDTH 13.5 % (11.5-14.5); WHITE BLOOD COUNT 4.4 10^3/ul (4.5-11.0)
[2017-06-18 07:47] VITALS: RESP 20
[2017-06-18 07:58] LABS: ALBUMIN 3.2 g/dL (3.0-4.8); CALCIUM 8.6 mg/dL (8.4-10.5)
[2017-06-18 08:07] LABS: % IRON SATURATION 16 % (20-55); IRON 35 ug/dL (45-180); TOTAL IRON BINDING CAPACITY 225 ug/dL (265-497)
--- NOTE | 2017-06-18 08:36 | CP.PCM.PN ---
Subjective - Date & Time of Evaluation Date of Evaluation: 06/18/17 Time of Evaluation: 08:34 - Subjective Subjective: Pgy-2 [address] note [address] Hdz Patient seen and examined at bedside. No acute distress. Patient states that she feels significantly better after the drainage of the hepatic cyst. Patient states that pain has resolved. She is tolerating diet well. Denies fever, chills , nausea, vomiting, abd pain, dysurea. Objective - Vital Signs/Intake and Output Vital Signs (last 24 hours): Temp Pulse Resp BP Pulse Ox 97.9 F 66 20 152/102 H 96 06/18/17 07:44 06/18/17 07:44 06/18/17 07:44 06/18/17 07:44 06/18/17 07:44 Intake and Output: 06/18/17 06/18/17 06:59 18:59 Intake Total 3120 Balance 3120 - Medications Medications: Current Medications Ciprofloxacin (Cipro) 500 mg PO DAILY [facility] PRN Reason: Protocol Stop: 06/18/17 13:12 Last Admin: 06/17/17 14:46 Dose: 500 mg Sodium Chloride (Sodium Chloride 0.9%) 1,000 mls @ 100 mls/hr IV .Q10H [facility] Last Admin: 06/17/17 10:03 Dose: 100 mls/hr Lisinopril (Zestril) 40 mg PO DAILY [facility] Ondansetron HCl (Zofran Inj) 4 mg IVP Q6H [facility] PRN Reason: Nausea/Vomiting - Labs Labs: 06/18/17 07:00 06/18/17 07:00 PT 11.1 Seconds (9.9-11.8) 06/16/17 19:45 INR 1.03 (0.93-1.08) 06/16/17 19:45 APTT 25.1 Seconds (23.7-30.8) 06/16/17 19:45 - Constitutional Appears: Well, No Acute Distress - Head Exam Head Exam: ATRAUMATIC, NORMOCEPHALIC - Eye Exam Eye Exam: Normal appearance - ENT Exam ENT Exam: Mucous Membranes Moist - Respiratory Exam Respiratory Exam: Clear to Ausculation Bilateral, NORMAL BREATHING PATTERN. absent: Decreased Breath Sounds, Rales, Rhonchi, Wheezes, Respiratory Distress - Cardiovascular Exam Cardiovascular Exam: REGULAR RHYTHM, +S1, +S2. absent: Tachycardia, Murmur - GI/Abdominal Exam GI & Abdominal Exam: Soft, Normal Bowel Sounds. absent: Distended, Firm, Tenderness - Extremities Exam Extremities Exam: Normal Inspection. absent: Pedal Edema - Neurological Exam Neurological Exam: Alert, Awake, Oriented x3 - Skin Skin Exam: Dry, Intact, Normal Color, Warm Assessment and Plan - Assessment and Plan (Free Text) Assessment: 56 yo female with a PMH of polycystic kidney disease and hypertension who presents with RUQ pain of 4 days duration. Imaging showed multiple renal and large hepatic cyst, 22 x 20 cm, s/p drainage per IR. Plan: 1. PKD - Gallbladder US on admission showed gallbladder wall thickening, Apparent biliary ductal dilatation. Hepatic and renal cysts. - abd US on 06/14/17 showed mild dilatation of the common bile duct. Multiple cystic lesions in the kidneys and liver, compatible with autosomal dominant polycystic kidney disease, Mildly complex cystic lesions in the kidneys bilaterally, Very large 26 cm hepatic cyst. - abd CT on 06/12/17 showed no evidence of significant acute process, innumerable bilateral renal cysts, Multiple hepatic cysts, including a very large 22 x 20 cm cyst, which is mildly complex. - RUQ pain likely secondary to large hepatic cyst - possible infection of cyst, will start cipro - Hepatic cyst was drained per IR, pain improved - gram stain was negative, cultures negative fro 24 hours - cont IVF 100 cc/hr NS 2. CKD - per patient GFR at baseline - will order urine protein and creatinine - Will continue to monitor - she is to follow up outpatient, will need referral for renal transplant - patient advised to drink plenty of water 3. Hypertension - per patient BP is not controlled at home - goal SBP is <120 - Lisinopril increased to 40 mg daily - cont to monitor - if does not improved, will prescribe norvasc 5mg daily
[2017-06-18] MEDS: Sodium Chloride 0.9% 1,000 ML IV SCH (09:08)
--- NOTE | 2017-06-18 14:25 | CP.PCM.PN ---
Subjective - Date & Time of Evaluation Date of Evaluation: 06/18/17 Time of Evaluation: 14:20 Objective - Vital Signs/Intake and Output Vital Signs (last 24 hours): Temp Pulse Resp BP Pulse Ox 97.9 F 72 20 194/128 H 96 06/18/17 07:44 06/18/17 09:09 06/18/17 07:44 06/18/17 09:09 06/18/17 07:44 Intake and Output: 06/18/17 06/18/17 06:59 18:59 Intake Total 3120 260 Balance 3120 260 - Medications Medications: Current Medications Lisinopril (Zestril) 40 mg PO DAILY [facility] Last Admin: 06/18/17 09:09 Dose: 40 mg Ondansetron HCl (Zofran Inj) 4 mg IVP Q6H PRN PRN Reason: Nausea/Vomiting - Labs Labs: 06/18/17 07:00 06/18/17 07:00 PT 11.1 Seconds (9.9-11.8) 06/16/17 19:45 INR 1.03 (0.93-1.08) 06/16/17 19:45 APTT 25.1 Seconds (23.7-30.8) 06/16/17 19:45
--- NOTE | 2017-06-18 14:26 | CP.PCM.DIS ---
<LindaManuela - Last Filed: 06/18/17 14:28> Provider - Provider Date of Admission: 06/16/17 23:15 Attending physician: Sherin Payton MD Consults: Consult: Dr. Hdz - ID Consult: Dr. Marinelli - ID Time Spent in preparation of Discharge (in minutes): 20 Hospital Course - Lab Results Lab Results: Micro Results 06/17/17 17:56 Other: Please Indicate Gram Stain - Final 06/17/17 17:56 Other: Please Indicate Body Fluid Culture - Preliminary NO GROWTH AFTER 24 HOURS 08 17:56 Other: Please Indicate Fungal Culture - Preliminary Most Recent Lab Values WBC 4.4 10^3/ul (4.5-11.0) L D 06/18/17 07:00 RBC 3.69 10^6/uL (3.5-6.1) 06/18/17 07:00 Hgb 10.2 g/dL (12.0-16.0) L 06/18/17 07:00 Hct 32.3 % (36.0-48.0) L 06/18/17 07:00 MCV 87.5 fl (80.0-105.0) 06/18/17 07:00 MCH 27.6 pg (25.0-35.0) 06/18/17 07:00 MCHC 31.6 g/dl (31.0-37.0) 06/18/17 07:00 RDW 13.5 % (11.5-14.5) 06/18/17 07:00 Plt Count 152 10^3/uL (120.0-450.0) 06/18/17 07:00 MPV 11.2 fl (7.0-11.0) H 06/18/17 07:00 Gran % 55.2 % (50.0-68.0) 06/18/17 07:00 Lymph % (Auto) 29.1 % (22.0-35.0) 06/18/17 07:00 [place] % (Auto) 8.5 % (1.0-6.0) H 06/18/17 07:00 Eos % (Auto) 6.7 % (1.5-5.0) H 06/18/17 07:00 Baso % (Auto) 0.5 % (0.0-3.0) 08/18/17 07:00 Gran # 2.41 (1.4-6.5) 06/18/17 07:00 Lymph # 1.3 (1.2-3.4) 06/18/17 07:00 [place] # 0.4 (0.1-0.6) 06/18/17 07:00 Eos # 0.3 (0.0-0.7) 06/18/17 07:00 Baso # 0.02 K/mm3 (0.0-2.0) 06/18/17 07:00 PT 11.1 Seconds (9.9-11.8) 06/16/17 19:45 INR 1.03 (0.93-1.08) 06/16/17 19:45 APTT 25.1 Seconds (23.7-30.8) 06/16/17 19:45 Sodium 142 mmol/L (132-148) 06/18/17 07:00 Potassium 4.2 mmol/L (3.6-5.0) 06/18/17 07:00 Chloride 111 mmol/L (95-110) H 06/18/17 07:00 Carbon Dioxide 21 mmol/L (21-33) 06/18/17 07:00 Anion Gap 14 (10-20) 06/18/17 07:00 BUN 27 mg/dL (7-21) H 06/18/17 07:00 Creatinine 2.3 mg/dL (0.5-1.4) H 06/18/17 07:00 Est GFR ( Amer) 27 06/18/17 07:00 Est GFR (Non-Af Amer) 22 06/18/17 07:00 Random Glucose 80 mg/dL (70-110) 06/18/17 07:00 Calcium 8.6 mg/dL (8.4-10.5) 06/18/17 07:00 Phosphorus 3.3 mg/dL (2.5-4.5) 06/18/17 07:00 Iron 35 ug/dL (45-180) L 06/18/17 07:00 TIBC 225 ug/dL (265-497) L 06/18/17 07:00 % Saturation 16 % (20-55) L 06/18/17 07:00 Ferritin 104.0 ng/mL 06/18/17 07:00 Total Bilirubin 0.4 mg/dL (0.2-1.3) 06/18/17 07:00 AST 21 U/L (15-39) 06/18/17 07:00 ALT 21 U/L (7-56) 06/18/17 07:00 Alkaline Phosphatase 57 U/L (38-133) 06/18/17 07:00 Lactate Dehydrogenase 597 U/L (333-699) 06/16/17 19:45 Total Creatine Kinase 98 U/L (35-230) 06/16/17 19:45 Troponin I < 0.01 ng/mL D 06/16/17 19:45 Total Protein 6.3 g/dL (5.8-8.3) 06/18/17 07:00 Albumin 3.2 g/dL (3.0-4.8) 06/18/17 07:00 Globulin 3.1 gm/dL 06/18/17 07:00 Albumin/Globulin Ratio 1.0 (1.1-1.8) L 06/18/17 07:00 Amylase 92 U/L (35-125) 06/16/17 19:45 Lipase 100 U/L (23-300) 06/16/17 19:45 25-OH Vitamin D Total < 12.8 NG/ML (30.0-100.0) L 06/18/17 07:00 Urine Color Yellow (YELLOW) 06/16/17 22:00 Urine Appearance Clear (CLEAR) 06/16/17 22:00 Urine pH 6.0 (4.7-8.0) 06/16/17 22:00 Ur Specific [place] 1.015 (1.005-1.035) 06/16/17 22:00 Urine Protein 100 mg/dL (<30 mg/dL) H 06/16/17 22:00 Urine Glucose (UA) Negative mg/dL (NEGATIVE) 06/16/17 22:00 Urine Ketones Negative mg/dL (NEGATIVE) 06/16/17 22:00 Urine Blood Trace-intact (NEGATIVE) H 06/16/17 22:00 Urine Nitrate Negative (NEGATIVE) 06/16/17 22:00 Urine Bilirubin Negative (NEGATIVE) 06/16/17 22:00 Urine Urobilinogen 0.2 E.U./dL (<1 E.U./dL) 06/16/17 22:00 Ur Leukocyte Esterase Negative [place]/uL (NEGATIVE) 06/16/17 22:00 Urine RBC Negative /hpf (0-2) 06/16/17 22:00 Urine WBC 2 - 5 /hpf (0-6) 06/16/17 22:00 Ur Epithelial Cells 1 - 3 /hpf (0-5) 06/16/17 22:00 Urine Bacteria Few (NEG) 06/16/17 22:00 Ur Random Creatinine 67 mg/dL 06/17/17 14:57 U Random Total Protein 108 mg/L 06/17/17 16:01 Fluid Source Peritoneal 06/17/17 17:56 Fluid Appearance Clear (CLEAR) 06/17/17 17:56 Fluid WBC 15.4 /uL (0.0-300.0) 06/17/17 17:56 Fluid RBC 11.0 /uL (0.0-0.0) H 06/17/17 17:56 Fluid Tot Cell Count 0 (0-0) 06/17/17 17:56 Fld Monocyte/Macrophag 0 % (0-0) 06/17/17 17:56 Fluid Comment Lgt yellow 06/17/17 17:56 - Hospital Course Hospital Course: Discharge Plan for Dr. Payton 56 F admitted for right upper quadrant abdominal pain. Patient bought to the ED a week ago with the same issue, which resolved with a dose of morphine. Patient returns with worse pain. Patient is from [place], went to [place], and then [place], and settled in [place] this month. June 05 2017. 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 Patient had cyst drained in [place]. It was asymptomatic at the time, but became symptomatic at this visit. Blood pressure recheck after AM BP of 198/128 before lisinopril 40 mg POQD. Patient states she has no headaches, changes in vision, difficulty walking. 171/99. She says her average is 150s and 160s. Patient states her back pain is gone since the procedure of hepatic cyst drainage. awaiting Patient is to monitor, her BP at home for a few days before following up with rd scientist. Patient is to be sent home with Norvasc 5mg and Lisinopril 40mg. Patient is to start Norvasc if blood pressure is too high in a few days. - Date & Time of H&P Date of H&P: 06/18/17 Time of H&P: 14:28 Discharge Exam - Head Exam Head Exam: ATRAUMATIC, NORMOCEPHALIC - Eye Exam Eye Exam: EOMI, Normal appearance - ENT Exam ENT Exam: Mucous Membranes Moist - Neck Exam Neck exam: Full Rom - Respiratory Exam Respiratory Exam: Clear to PA & Lateral. absent: Accessory Muscle Use, Respiratory Distress - Cardiovascular Exam Cardiovascular Exam: REGULAR RHYTHM. absent: Bradycardia, Tachycardia - GI/Abdominal Exam GI & Abdominal Exam: Normal Bowel Sounds, Soft. absent: Tenderness - Extremities Exam Extremities exam: full ROM - Neurological Exam Neurological exam: Alert, Normal Gait, Oriented x3 - Psychiatric Exam Psychiatric exam: Normal Affect, Normal Mood - Skin Skin Exam: Dry, Intact, Normal Color, Warm Discharge Plan - Discharge Medications Prescriptions: amLODIPine [Norvasc] 5 mg PO DAILY #14 tab RX: Lisinopril [Zestril] 40 mg PO DAILY #14 tab - Follow Up Plan Condition: FAIR Disposition: HOME/ ROUTINE Patient education suggested?: Yes Instructions: Acute Kidney Injury (DC), Heart Healthy Diet (DC), Acute Abdominal Pain (DC), Chronic Hypertension (DC) Additional Instructions: 1. Follow up with a PMD in one week 2. Follow up with [facility] in one week 3. Recheck blood pressure every day. take lisinopril 40mg POQD. add Norvasc 5mg POQD on third day of blood pressure <120/<80 Referrals: [facility], [Non-Staff] - Follow up with primary <Sherin Payton - Last Filed: 06/18/17 17:21> Provider - Provider Date of Admission: 06/16/17 23:15 Attending physician: Sherin Payton MD Time Spent in preparation of Discharge (in minutes): 35 Hospital Course - Lab Results Lab Results: Micro Results 06/17/17 17:56 Other: Please Indicate Gram Stain - Final 06/17/17 17:56 Other: Please Indicate Body Fluid Culture - Preliminary NO GROWTH AFTER 24 HOURS 06/17/17 17:56 Other: Please Indicate Fungal Culture - Preliminary Most Recent Lab Values WBC 4.4 10^3/ul (4.5-11.0) L D 06/18/17 07:00 RBC 3.69 10^6/uL (3.5-6.1) 06/18/17 07:00 Hgb 10.2 g/dL (12.0-16.0) L 06/18/17 07:00 Hct 32.3 % (36.0-48.0) L 06/18/17 07:00 MCV 87.5 fl (80.0-105.0) 06/18/17 07:00 MCH 27.6 pg (25.0-35.0) 06/18/17 07:00 MCHC 31.6 g/dl (31.0-37.0) 06/18/17 07:00 RDW 13.5 % (11.5-14.5) 06/18/17 07:00 Plt Count 152 10^3/uL (120.0-450.0) 06/18/17 07:00 MPV 11.2 fl (7.0-11.0) H 06/18/17 07:00 Gran % 55.2 % (50.0-68.0) 06/18/17 07:00 Lymph % (Auto) 29.1 % (22.0-35.0) 06/18/17 07:00 [place] % (Auto) 8.5 % (1.0-6.0) H 06/18/17 07:00 Eos % (Auto) 6.7 % (1.5-5.0) H 06/18/17 07:00 Baso % (Auto) 0.5 % (0.0-3.0) 06/18/17 07:00 Gran # 2.41 (1.4-6.5) 06/18/17 07:00 Lymph # 1.3 (1.2-3.4) 06/18/17 07:00 [place] # 0.4 (0.1-0.6) 06/18/17 07:00 Eos # 0.3 (0.0-0.7) 06/18/17 07:00 Baso # 0.02 K/mm3 (0.0-2.0) 06/18/17 07:00 PT 11.1 Seconds (9.9-11.8) 06/16/17 19:45 INR 1.03 (0.93-1.08) 06/16/17 19:45 APTT 25.1 Seconds (23.7-30.8) 06/16/17 19:45 Sodium 142 mmol/L (132-148) 06/18/17 07:00 Potassium 4.2 mmol/L (3.6-5.0) 06/18/17 07:00 Chloride 111 mmol/L (95-110) H 06/18/17 07:00 Carbon Dioxide 21 mmol/L (21-33) 06/18/17 07:00 Anion Gap 14 (10-20) 06/18/17 07:00 BUN 27 mg/dL (7-21) H 06/18/17 07:00 Creatinine 2.3 mg/dL (0.5-1.4) H 06/18/17 07:00 Est GFR ( Amer) 27 06/18/17 07:00 Est GFR (Non-Af Amer) 22 06/18/17 07:00 Random Glucose 80 mg/dL (70-110) 06/18/17 07:00 Calcium 8.6 mg/dL (8.4-10.5) 06/18/17 07:00 Phosphorus 3.3 mg/dL (2.5-4.5) 06/18/17 07:00 Iron 35 ug/dL (45-180) L 06/18/17 07:00 TIBC 225 ug/dL (265-497) L 06/18/17 07:00 % Saturation 16 % (20-55) L 06/18/17 07:00 Ferritin 104.0 ng/mL 06/18/17 07:00 Total Bilirubin 0.4 mg/dL (0.2-1.3) 06/18/17 07:00 AST 21 U/L (15-39) 06/18/17 07:00 ALT 21 U/L (7-56) 06/18/17 07:00 Alkaline Phosphatase 57 U/L (38-133) 06/18/17 07:00 Lactate Dehydrogenase 597 U/L (333-699) 06/16/17 19:45 Total Creatine Kinase 98 U/L (35-230) 06/16/17 19:45 Troponin I < 0.01 ng/mL D 06/16/17 19:45 Total Protein 6.3 g/dL (5.8-8.3) 06/18/17 07:00 Albumin 3.2 g/dL (3.0-4.8) 06/18/17 07:00 Globulin 3.1 gm/dL 06/18/17 07:00 Albumin/Globulin Ratio 1.0 (1.1-1.8) L 06/18/17 07:00 Amylase 92 U/L (35-125) 06/16/17 19:45 Lipase 100 U/L (23-300) 06/16/17 19:45 25-OH Vitamin D Total < 12.8 NG/ML (30.0-100.0) L 06/18/17 07:00 Urine Color Yellow (YELLOW) 06/16/17 22:00 Urine Appearance Clear (CLEAR) 06/16/17 22:00 Urine pH 6.0 (4.7-8.0) 06/16/17 22:00 Ur Specific [place] 1.015 (1.005-1.035) 06/16/17 22:00 Urine Protein 100 mg/dL (<30 mg/dL) H 06/16/17 22:00 Urine Glucose (UA) Negative mg/dL (NEGATIVE) 06/16/17 22:00 Urine Ketones Negative mg/dL (NEGATIVE) 06/16/17 22:00 Urine Blood Trace-intact (NEGATIVE) H 06/16/17 22:00 Urine Nitrate Negative (NEGATIVE) 06/16/17 22:00 Urine Bilirubin Negative (NEGATIVE) 06/16/17 22:00 Urine Urobilinogen 0.2 E.U./dL (<1 E.U./dL) 06/16/17 22:00 Ur Leukocyte Esterase Negative [place]/uL (NEGATIVE) 06/16/17 22:00 Urine RBC Negative /hpf (0-2) 06/16/17 22:00 Urine WBC 2 - 5 /hpf (0-6) 06/16/17 22:00 Ur Epithelial Cells 1 - 3 /hpf (0-5) 06/16/17 22:00 Urine Bacteria Few (NEG) 06/16/17 22:00 Ur Random Creatinine 67 mg/dL 06/17/17 14:57 U Random Total Protein 108 mg/L 06/17/17 16:01 Fluid Source Peritoneal 06/17/17 17:56 Fluid Appearance Clear (CLEAR) 06/17/17 17:56 Fluid WBC 15.4 /uL (0.0-300.0) 06/17/17 17:56 Fluid RBC 11.0 /uL (0.0-0.0) H 06/17/17 17:56 Fluid Tot Cell Count 0 (0-0) 06/17/17 17:56 Fld Monocyte/Macrophag 0 % (0-0) 06/17/17 17:56 Fluid Comment Lgt yellow 06/17/17 17:56 Attending/Attestation - Attestation I have personally seen and examined this patient.: Yes I have fully participated in the care of the patient.: Yes I have reviewed all pertinent clinical information, including history, physical exam and plan: Yes Notes (Text): 06/18/17 17:17 56 year old female with past medical history of PCKD, CKD and hypertension who presented with complaint of right sided abdominal pain. US showed hepatic cyst which was drained yesterday. She reports her symptoms have improved today. She is on lisinopril for hypertension which was increased due to elevated blood pressure with some improvement this afternoon. She is also started on norvasc 5 mg this afternoon and advised to follow up closely with pmd and nephrology to monitor BP and kidney function. Sherin Payton MD Hospitalist.
[2017-06-18 16:11] VITALS: BP 160/118; PULSE 75
[2017-06-18 16:28] VITALS: TEMP 98; O2SAT 97
== END 2017-06-18 17:22 | disposition home or self-care (01) | DRG 442 ==
LOC: ED 19:05 → ERH 23:15 → 5RSO 06-17 00:31
PROVIDERS: ADMIT Hospitalist; ATTEND Internal Medicine
PROC: BF25ZZZ Computerized Tomography (CT Scan) of Liver (ICD-10-PCS; 2017-06-17)
PROC: 0F9130Z Drainage of Right Lobe Liver with Drainage Device, Percutaneous Approach (ICD-10-PCS; principal; 2017-06-17 12:30)
DX: K76.89 Other specified diseases of liver (principal); N18.4 Chronic kidney disease, stage 4 (severe); Q61.2 Polycystic kidney, adult type; N39.0 Urinary tract infection, site not specified; I12.9 Hypertensive chronic kidney disease with stage 1 through stage 4 chronic kidney disease, or unspecified chronic kidney disease; D64.9 Anemia, unspecified; Z80.1 Family history of malignant neoplasm of trachea, bronchus and lung; Z82.71 Family history of polycystic kidney; Z79.899 Other long term (current) drug therapy; R40.2412 Glasgow coma scale score 13-15, at arrival to emergency department; K82.8 Other specified diseases of gallbladder; R16.2 Hepatomegaly with splenomegaly, not elsewhere classified; R80.9 Proteinuria, unspecified

== ENCOUNTER 2018-08-10 09:05 | Day surgery (SDC) | payer BC ==
[2018-08-05 09:45] VITALS: BMI 32.8
[2018-08-10 09:36] LABS: HEMOGLOBIN 11.3 g/dL (12.0-16.0); MEAN CELL VOLUME 85.5 fl (80.0-105.0); MEAN CORPUSCULAR HEMOGLOBIN 27.8 pg (25.0-35.0); MEAN CORPUSCULAR HGB CONC 32.6 g/dl (31.0-37.0); MEAN PLATELET VOLUME 11.2 fl (7.0-11.0); RBC 4.06 10^6/uL (3.5-6.1); WHITE BLOOD COUNT 5.1 10^3/ul (4.5-11.0)
[2018-08-10 09:45] LABS: INR 1.01; PARTIAL THROMBOPLASTIN TIME 32.2 Seconds (25.1-36.5); PROTHROMBIN TIME 11.6 SECONDS (9.4-12.5)
[2018-08-10 09:49] LABS: CALCIUM 9.8 mg/dL (8.4-10.5)
[2018-08-10] MEDS ORDERED: Midazolam 2 MG/2 ML VIAL ONE (10:00)
[2018-08-10] MEDS ORDERED: Lidocaine 1% 5ml Abboject ONE (10:01)
[2018-08-10] MEDS ORDERED: Sodium Chloride 0.45% 1,000 ML IV SCH (10:45)
[2018-08-10] MEDS ORDERED: Oxycodone/Acetaminophen 5/325 mg Tab PO PRN (10:45)
[2018-08-10 10:55] VITALS: RESP 18
[2018-08-10 11:22] VITALS: O2SAT 100
[2018-08-10] MEDS ORDERED: Midazolam 2 MG/2 ML VIAL IVP ONE (11:33)
[2018-08-10 11:44] VITALS: PULSE 53; TEMP 97.8
[2018-08-10 12:11] VITALS: BP 145/98
--- NOTE | 2018-08-10 16:13 | US ---
PROCEDURE: Ultrasound-guided right thyroid fine needle aspiration biopsy. CLINICAL HISTORY: Dominant 4-5 cm heterogeneous hypoechoic right thyroid nodule evaluate for malignancy PHYSICIAN(S): Cory Marinelli M.D. TECHNIQUE: The relative risks and indications for the procedure were explained to the patient and consent obtained. The patient was placed supine on the stretcher with the neck extended and preliminary sonography of the thyroid performed. This reveal well-defined heterogeneous 4 cm hypoechoic nodule in the right thyroid. Much smaller nodules are seen on the left. The neck was prepped and draped in the usual sterile fashion. Conscious sedation and monitoring were provided throughout the procedure by a nurse. 1% Xylocaine was used to anesthetize the skin and soft tissues at the access site. Three passes with a 22-gauge needle were performed under ultrasound guidance for fine needle aspiration of the 4 cm hypoechoic nodule in the right thyroid. The slides were reviewed by pathology and deemed adequate. The patient tolerated the procedure well. IMPRESSION: 1. Ultrasound guided fine needle aspiration of a 4 cm hypoechoicnodule in the right thyroid.
== END 2018-08-10 13:00 | disposition home or self-care (01) ==
LOC: SDS 09:05
PROVIDERS: ATTEND Radiology Vascular & Interventional Radiology
DX: E04.1 Nontoxic single thyroid nodule (principal); F17.200 Nicotine dependence, unspecified, uncomplicated; I12.9 Hypertensive chronic kidney disease with stage 1 through stage 4 chronic kidney disease, or unspecified chronic kidney disease; N18.9 Chronic kidney disease, unspecified; E66.9 Obesity, unspecified; Q61.3 Polycystic kidney, unspecified
CPT/HCPCS: 10022; 36415; 76942; 80048; 85027; 85610; 85730; 88173; 88305; 99152; 99153; J2250; J2405; J3010; J7030; J7120